=== PATIENT | female | born 1995 | race Caucasian/White ===

== ENCOUNTER 2020-10-12 13:43 | Emergency (ER) | payer OTHER ==
[~2020-10-12] VITALS: Ht 167.6 cm; Wt 111.6 kg
[2020-10-12 14:08] VITALS: BP 133/86
== END 2020-10-12 15:00 | disposition home or self-care (01) ==
LOC: ED 14:50
DX: B15.9 Hepatitis A without hepatic coma (principal)
CPT/HCPCS: 36415; 86705; 86706; 86803; 87340; 87806; 99283; G0475